=== PATIENT | male | born 1950 | race Caucasian/White ===

== ENCOUNTER 2025-08-20 11:18 | Emergency (ER) | payer OTHER, SELFPAY ==
[2025-08-20 11:19] VITALS: BP 158/84; PULSE 78; RESP 16; TEMP 36.8; O2SAT 98; BMI 25.9
--- NOTE | 2025-08-20 14:26 | EDS_ITS ---
HPI History of Present Illness Chief Complaint: Head Injury Narrative Narrative: 75-year-old male who denies significant past medical history presents with injury to his head/forehead that he sustained prior to arrival. He states he was up in the attic, and he started to fall. He turned to the right to try and fall onto his right shoulder when his head struck the rafter. He denies neck pain or loss of consciousness, no current headache. However, he put his hand to his face and noticed a handful of blood. He sustained a laceration approximately 3 cm to his right forehead above his eyebrow. He also sustained an abrasion/avulsion laceration to the bridge of his nose. He denies any other injury. He states his [facility]. He presents mainly because he could not get the bleeding to stop initially, and he noticed that the wound was gaping and feels that he needs stitches/sutures. Tetanus Immunization: <5 years PFSH PFSH Allergy/AdvReac Type Severity Reaction Status Date / Time No Known Allergies Allergy Verified 08/20/25 11:22 Social History Smoking Status: Former smoker ROS ROS ED ROS Narrative Review of systems positive for laceration to right forehead as well as avulsion injury to bridge of nose. No neck pain. No shoulder pain. After hitting head, no headache, no loss of consciousness. EXAM Physical Exam Narrative Exam Narrative: GCS 15. ABCs intact. Neck is soft and supple without meningismus, no vertebral point tenderness or step-off, full range of motion. PERRL, EOMI. Inspection of the right forehead does reveal an irregularly shaped laceration, 3 cm to the right forehead just above the eyebrow. There is a small avulsion laceration to the bridge of the nose with minimal capillary oozing. No pulsatile bleeding. No nasal septal hematoma. Cardiovascular examination regular rate and rhythm. Lungs clear to auscultation bilaterally. Abdomen is soft and nontender. Neurological examination shows him to be awake, alert, interactive, appropriate, and oriented. Moves all extremities. Const Vital Signs: 08/20/25 11:19 08/20/25 15:22 Temperature 98.2 F Temperature Source Oral Pulse Rate 78 Respiratory Rate 16 Respiratory Effort Normal Non-Labored Blood Pressure 158/84 H Blood Pressure Mean 108 Pulse Ox 98 Oxygen Delivery Method Room Air PROC Procedures Lacerations Right forehead: Length: 1.97 in Depth: Skin Shape: Linear (Slightly irregular) Prep: Sterile Conditions and Shure-Clens Laceration repair: Irrigated, Lidocaine, Local and Wound explored Irrigated (ml): 100 Number of Sutures/[place]: 10 Suture Information: Ethilon and 5-0 Comment: Patient tolerated procedure well MDM MDM MDM Narrative Medical decision making narrative: The differential diagnosis includes but not limited to closed head injury versus intracranial hemorrhage. I do feel that the laceration to his right forehead needs suture closure. He was informed of the risk of infection and scarring and acknowledges an understanding. I do feel that the avulsion to the bridge of his nose can be treated with a Band-Aid he applied prior to arrival. His tetanus immunization is current as he received it approximately [facility] ago [facility] of the brain was obtained to look for intracranial hemorrhage or skull fracture. I reviewed the radiology report of the CT of the brain and there is no evidence of an acute hemorrhage or fracture. See procedure note for details of wound closure. Patient is to have sutures rem david in 5 to 7 days. Return instructions to the emergency department were reviewed. [id number] medications should be appropriate for analgesia. Disposition is discharged home in stable condition. Radiography Diagnostic Testing: Clinical Impression(s) from Imaging Studies Brain CT 08/20/25 14:40 IMPRESSION: No acute intracranial process Reading Location: [facility] Discharge Plan Triage Chief Complaint: Head Injury ED Provider: Raul Schulz Dx/Rx/DC Orders Clinical Impression: Fall, Laceration of forehead, Closed head injury Instructions: ED Head Injury (Adult), ED Laceration, All Closures [facility]errals: [facility] [Primary Care Provider, None] Activity Restrictions/Additional Instructions: Have sutures removed from your forehead in 5 to 7 days. You may return to the emergency department. Tylenol or ibuprofen as needed for pain. Return with fever, increased redness around wound, drainage of pus from wound, new or worsening symptoms. You had a total of 10 sutures placed in your laceration to your right forehead. Print Language: [place] Disposition Disposition: Home, Self Care
[2025-08-20] MEDS: Lidocaine 1% (20 ml mdv) 20 ML Vial INFILT (14:36)
--- NOTE | 2025-08-20 14:40 | CT_ITS ---
PROCEDURE: BRAIN/HEAD WITHOUT CONTRAST 08/20/2025 REASON FOR EXAM: TRAUMA TECHNIQUE: Procedure Code: CTBR Modality: CT Procedure: BRAIN/HEAD WITHOUT CONTRAST Coronal and Sagittal reconstruction series were provided. One or more dose reduction techniques were used (e.g., Automated exposure control, adjustment of the mA and/or kV according to patient size, use of iterative reconstruction technique. RADIATION DOSE SUMMARY: DLP: 999 mGycm COMPARISON: None FINDINGS: There is no acute infarct, intracranial hemorrhage, or mass effect. There is no hydrocephalus or significant midline shift. There is mild chronic microvascular ischemic changes and mild parenchymal volume loss. No acute, depressed calvarial fractures. No large scalp hematomas. The paranasal sinuses are clear. CT/Brain/Head without Contrast IMPRESSION: No acute intracranial process Reading Location: [id number]
[2025-08-20 15:19] VITALS: BP 133/84; PULSE 65; RESP 17; TEMP 36.3; O2SAT 100
[2025-08-20 16:20] VITALS: BP 133/84; PULSE 65; RESP 17; TEMP 36.3; O2SAT 100
== END 2025-08-20 16:29 | disposition home or self-care (01) ==
PROVIDERS: Emergency Provider Emergency Medicine; Visit Provider Emergency Medicine
DX: S01.81XA Laceration without foreign body of other part of head, initial encounter (principal); S01.21XA Laceration without foreign body of nose, initial encounter; W01.198A Fall on same level from slipping, tripping and stumbling with subsequent striking against other object, initial encounter; Y92.008 Other place in unspecified non-institutional (private) residence as the place of occurrence of the external cause; Z87.891 Personal history of nicotine dependence
CPT/HCPCS: 12013; 70450; 99283

== ENCOUNTER 2025-08-25 06:30 | Emergency (ER) | payer OTHER, SELFPAY ==
[2025-08-25 06:31] VITALS: BP 132/88; PULSE 71; RESP 16; TEMP 36.6; O2SAT 96; BMI 25.9
--- NOTE | 2025-08-25 06:40 | EDS_ITS ---
HPI History of Present Illness Chief Complaint: Suture Remv Narrative Narrative: Patient is a 75-year-old male who presents to the emergency department for suture removal. Patient states about 5 days ago he hit his head on a set of rafters and he had the sutures removed. He states that the physician here. Notified him that he needs to have these removed between 5 to 7 days therefore he came here to have this done this morning. He has no complaints at this point time feels well. PFSH PFS Medical History unable to obtain Allergy/AdvReac Type Severity Reaction Status Date / Time No Known Allergies Allergy Verified 08/25/25 06:30 Surgical History unable to obtain Social History Smoking Status: Former smoker ROS ROS ED ROS Narrative Constitutional: Denies headache, lightness, dizziness, fevers, chills Neurological: Denies numbness, weeks, tingling Musculoskeletal: Back pain Skin: States he needs his sutures removed as noted above EXAM Physical Exam Narrative Exam Narrative: General: Patient was lying in bed rest comfortably did not appear to be in acute distress Head: Atraumatic, normocephalic Eyes: PERRL bilaterally, EOMI bilateral, no conjunctival injection noted Neck: Soft, supple, trachea midline Cardiovascular: Regular rate Extremities: +5/5 strength noted in the bilateral lower extremities Neurological: Patient follow commands that he was at [facility] the year is 2024 Skin: Patient has a well-healing cut to his right forehead just above his eyebrow with sutures in place no concern for infection Const Vital Signs: 08/25/25 06:31 Temperature 98 F Temperature Source Temporal Pulse Rate 71 Respiratory Rate 16 Blood Pressure 132/88 H Blood Pressure Mean 102 Pulse Ox 96 MDM MDM MDM Narrative Medical decision making narrative: Patient is a 75-year-old male who presented to the emergency department for suture removal. On the differential diagnose includes but not to forehead laceration, suture removal. Patient had sutures removed here in the emergency department tolerated this well with no complications wound is well-closed. No concern for infection at this point time. He is advised to keep a close eye on this and follow-up with his doctor in outpatient heading. He is vies return with worsening symptoms and concerns. He is agreeable to plan all question concerns answered is discharged home in stable condition. Discharge Plan Triage Chief Complaint: Suture Remv ED Provider: Paras Early Dx/Rx/DC Orders [facility] [Primary Care Provider, None] Print Language: Portuguese
[2025-08-25 06:46] VITALS: BP 132/88; PULSE 71; RESP 16; TEMP 36.6; O2SAT 96
== END 2025-08-25 06:52 | disposition home or self-care (01) ==
LOC: ED 06:51
PROVIDERS: Emergency Provider Emergency Medicine; Visit Provider Emergency Medicine
DX: Z48.02 Encounter for removal of sutures (principal); Z87.891 Personal history of nicotine dependence
CPT/HCPCS: 99282